=== PATIENT | male | born 1985 | race Caucasian/White ===

== ENCOUNTER → 2020-04-05 | Outpatient (CLI) | payer BC ==
--- NOTE | 2020-04-05 11:40 | RAD ---
Study: CR KNEE LEFT 3V Indication: Left knee pain. History of surgery 14 years prior. Comparison: 09/26/2005 Findings: Sequela of ACL reconstruction. Within normal limits femoral and tibial tunnels. Femorotibial joint space height is similar to the 2006 comparison. No large knee joint effusion apparent by radiography. Maintained patellofemoral joint space height. Impression: Sequela of ACL reconstruction. No complicating features by radiography. No significant arthrosis with femoral tibial joint space height without significantly different from 2005. Electronically signed by: TASHI COLLINS MD (04/05/2020 11:37 AM) [id number]
== END ==
LOC: RAD 09:53
PROVIDERS: ATTEND Orthopaedic Surgery Sports Medicine
DX: M25.572 Pain in left ankle and joints of left foot (principal); Z96.652 Presence of left artificial knee joint
CPT/HCPCS: 73562

== ENCOUNTER 2020-11-28 20:47 | Emergency (ER) | payer OTHER, BC ==
[~2020-11-28] VITALS: Ht 188 cm; Wt 108.0 kg
[2020-11-28] MEDS ORDERED: DIPH,PERTUSS(ACELL),TET VAC/PF 0.5 ML SYRINGE. VAX IM ONE (21:45)
--- NOTE | 2020-11-28 22:05 | PHYS DOC ---
Past History Past Medical History: No Pertinent History Alcohol Use: Occasionally General Adult EDM: Chief Complaint: HEAD INJURY/TRAUMA HPI: HPI: 35-year-old male presents with scalp laceration. The patient was at work rolling up a blind when the metal fascia fell off and struck the patient in the top of the head. The patient sustained a small laceration. He denies any h eadache, dizziness, or other symptoms. He has no other injuries at this time. Review of Systems: Review of Systems: Constitutional: Denies fever or chills Eyes: Denies change in visual acuity HENT: Denies nasal congestion or sore throat Respiratory: Denies cough or shortness of breath Cardiovascular: Denies chest pain or edema GI: Denies abdominal pain, nausea, vomiting, bloody stools or diarrhea : Denies dysuria Musculoskeletal: Denies back pain or joint pain Integument: Laceration scalp Neurologic: Denies headache, focal weakness or sensory changes Endocrine: Denies polyuria or polydipsia Lymphatic: Denies swollen glands Psychiatric: Denies depression or anxiety Current Medications: Current Meds: Current Medications Medications (Trade) Dose Ordered Sig/Matias Start Time Stop Time Status Last Admin Dose Admin Diphtheria/ Pertussis/Tetanus Vacc (ADACEL TDap SYRINGE) 0.5 ml ONCE ONCE 11/28/20 21:45 11/28/20 21:46 DC 11/28/20 21:51 0.5 ML Allergies: Allergies: Allergies Coded Allergies Type Severity Reaction Last Updated Verified No Known Drug Allergies 11/28/20 No Physical Exam: PE: Constitutional: Well developed, well nourished, no acute distress, non-toxic appearance. [] HENT: Normocephalic, atraumatic, bilateral external ears normal, oropharynx moist, no oral exudates, nose normal. [] Eyes: PERRLA, EOMI, conjunctiva normal, no discharge. [] Neck: Normal range of motion, no tenderness, supple, no stridor. [] Cardiovascular:Heart rate regular rhythm, no murmur [] Lungs & Thorax: Bilateral breath sounds clear to auscultation [] Abdomen: Bowel sounds normal, soft, no tenderness, no masses, no pulsatile masses. [] Skin: 1.5 cm L-shaped laceration of the scalp [] Back: No tenderness, no CVA tenderness. [] Extremities: No tenderness, no cyanosis, no clubbing, ROM intact, no edema. [] Neurologic: Alert and oriented X 3, normal motor function, normal sensory function, no focal deficits noted. [] Psychologic: Affect normal, judgement normal, mood normal. [] Current Patient Data: Vital Signs: Vital Signs Date Time Temp Pulse Resp B/P (MAP) Pulse Ox O2 Delivery O2 Flow Rate FiO2 11/28/20 20:47 97.3 91 18 142/83 (102) 97 Room Air EKG: EKG: [] Radiology/Procedures: Radiology/Procedures: [] Heart Score: C/O Chest Pain: N/A Risk Factors: Risk Factors: DM, Current or recent (<one month) smoker, HTN, HLP, family history of CAD, obesity. Risk Scores: Score 0 - 3: 2.5% MACE over next 6 weeks - Discharge Home Score 4 - 6: 20.3% MACE over next 6 weeks - Admit for Clinical Observation Score 7 - 10: 72.7% MACE over next 6 weeks - Early Invasive Strategies Course & Med Decision Making: Course & Med Decision Making Pertinent Labs and Imaging studies reviewed. (See chart for details) I repaired the patient's wound with Dermabond. See note below for more details. His tetanus was updated in the ED. He is stable for discharge at this time. [] Magda Disclaimer: Magda Disclaimer: This electronic medical record was generated, in whole or in part, using a voice recognition dictation system. Laceration Repair Lac Repair Indication: [] 1cm Scalp laceration Procedure: I obtained verbal consent from the patient for tissue adhesive repair of his scalp laceration. Wound was irrigated with saline under pressure. No foreign bodies were found. No anesthesia was used. 2 layers of Dermabond skin adhesive was placed over the wound. There was good skin approximation. Bleeding was controlled. No dressing was applied. The patient's tetanus was updated in the ED. Total repaired wound length: [1 cm Other Items: None The patient tolerated the procedure [well. Complications: None Departure Departure: Impression: Primary Impression: Scalp laceration Qualified Codes: S01.01XA - Laceration without foreign body of scalp, initial encounter Disposition: HOME / SELF CARE / HOMELESS Condition: STABLE Referrals: PCP,XIOMY (PCP) Patient Instructions: Tissue Adhesive Wound Care, [id number] CHILO CROWELL DO Nov 28, 2020 22:05
[2020-11-28 22:18] VITALS: BP 143/79
== END 2020-11-28 22:18 | disposition home or self-care (01) ==
LOC: ER 20:47
DX: S01.01XA Laceration without foreign body of scalp, initial encounter (principal); W18.09XA Striking against other object with subsequent fall, initial encounter; Y93.89 Activity, other specified; Y92.89 Other specified places as the place of occurrence of the external cause; Y99.8 Other external cause status
CPT/HCPCS: 12001; 90471; 90715; 99283